=== PATIENT | female | born 1990 | race Two or more races ===

== ENCOUNTER 2017-08-24 16:05 | Emergency (ER) | payer BC ==
[~2017-08-24] VITALS: Ht 160 cm; Wt 86.2 kg
[2017-08-24 16:20] VITALS: Ht 160 cm; Wt 86.2 kg
[2017-08-24 17:13] LABS: BASOPHIL % 0.6 % (0-2); PLATELET COUNT 305 x10^3mcL (130-400); RED CELL DISTRIBUTION WIDTH 12.4 % (11.5-14.5)
[2017-08-24 17:19] LABS: CHLORIDE SERUM 104 mmol/L (98-107); CREATININE SERUM 0.7 mg/dL (0.6-1.0); GFR1 > 60 mL/min; GLUCOSE SERUM 83 mg/dL (74-106); POTASSIUM SERUM 3.4 mmol/L (3.5-5.1); SODIUM SERUM 139 mmol/L (136-145)
[2017-08-24 17:22] LABS: AMPHETAMINE QUAL UR NONE DETECTED (NEG <=1000)
[2017-08-24 17:24] LABS: UA SPECIFIC GRAVITY >=1.030 (1.005-1.035); microscopic required? YES; urine erythrocyte TRACE (NEGATIVE)
[2017-08-24 17:24] LABS: ALKALINE PHOSPHATASE 68 U/L (46-116); ALT/SGPT 27 U/L (14-59); AST/SGOT 17 U/L (15-37); BILIRUBIN TOTAL 0.8 mg/dL (0.20-1.00); TOTAL PROTEIN, SERUM 8.2 g/dL (6.4-8.2)
[2017-08-24 18:20] VITALS: BP 123/73
== END 2017-08-24 18:21 | disposition home or self-care (01) ==
LOC: ED 16:05
PROVIDERS: Emergency Medicine
DX: O26.891 Other specified pregnancy related conditions, first trimester (principal); F41.8 Other specified anxiety disorders; Z3A.00 Weeks of gestation of pregnancy not specified
CPT/HCPCS: 36415; G0480

== ENCOUNTER 2018-06-29 14:15 | Emergency (ER) | payer BC ==
[~2018-06-29] VITALS: Ht 157.5 cm; Wt 78.5 kg
[2018-06-29 14:41] VITALS: Ht 157.5 cm; Wt 78.5 kg
[2018-06-29 15:58] VITALS: BP 99/58
== END 2018-06-29 15:58 | disposition home or self-care (01) ==
LOC: ED 14:15
DX: S29.012A Strain of muscle and tendon of back wall of thorax, initial encounter (principal); F41.9 Anxiety disorder, unspecified; Z98.890 Other specified postprocedural states; X58.XXXA Exposure to other specified factors, initial encounter; Y93.89 Activity, other specified; Y92.89 Other specified places as the place of occurrence of the external cause; Y99.8 Other external cause status
CPT/HCPCS: J1885